=== PATIENT | female | born 1990 | race Caucasian/White ===

== ENCOUNTER 2025-04-16 08:29 | Outpatient (CLI) | payer BC, SELFPAY | END 2025-04-16 08:30 | disposition home or self-care (01) | LOC: NFLDREF 04-29 03:55 | PROVIDERS: Visit Provider Registered Nurse | DX: Z31.69 Encounter for other general counseling and advice on procreation (principal) | CPT/HCPCS: 84144 ==

== ENCOUNTER 2025-05-14 16:13 | Outpatient (CLI) | payer BC, SELFPAY | END 2025-05-14 16:14 | disposition home or self-care (01) | LOC: NFLDREF 05-24 01:48 | PROVIDERS: Visit Provider Registered Nurse | DX: Z31.69 Encounter for other general counseling and advice on procreation (principal) | CPT/HCPCS: 84144 ==

== ENCOUNTER 2025-06-26 15:54 | Outpatient (CLI) | payer BC, SELFPAY ==
--- NOTE | 2025-06-26 16:00 | CRLHL7_ITS ---
For Patients: As a result of the Cures Act, medical imaging exams and procedure reports are released immediately into your electronic medical record. You may view this report before your referring provider. If you have questions, please contact your health care provider. OB ULTRASOUND INDICATION: Dating and viability. TECHNIQUE: Real time grayscale imaging of the fetus was performed. Transvaginal. Transvaginal imaging performed to better demonstrate the endometrium and ovaries. LMP: 04/24/2025. JAMEL by LMP: 01/29/2026. GA: 9 w, 0 d. Previous US: No. CRL: 2.3 cm. 9 w 0 d. JAMEL: 01/29/2026. FHR: 181 BPM. Gestational sac: 4.1 cm. Appears within normal limits. Yolk sac: 2.7 mm. Appears within normal limits. Right ovary: 2.9 x 1.9 x 3.1 cm. CL. Left ovary: 2.3 x 1.2 x 1.9 cm. IMPRESSION: Single living intrauterine measures 9 weeks 0 days and sonographic due date 01/29/2026. Subchorionic hemorrhage measures 1.2 x 0.6 x 0.6 cm. Bakari Fuentes M.D. Diagnostic Radiologist [email or web address] rockwell/Dictated by: Bakari Fuentes MD @ 06/27/2025 7:43:00 AM (Electronically Signed)
== END 2025-06-26 15:55 | disposition home or self-care (01) ==
LOC: US 15:54
PROVIDERS: Visit Provider Registered Nurse
DX: O20.9 Hemorrhage in early pregnancy, unspecified (principal); Z3A.09 9 weeks gestation of pregnancy; Z82.79 Family history of other congenital malformations, deformations and chromosomal abnormalities
CPT/HCPCS: 76817; 83021; 86703; 86704; 86706; 86762; 86780; 86787; 86803; 86850; 86900; 86901; 87086; 87340; 87491; 87591

== ENCOUNTER 2025-06-26 17:07 | Outpatient (CLI) | payer BC, SELFPAY ==
[2025-06-26 20:37] LABS: Chlamydia DNA Amplified* NOT DETECTED (No Detected); GC DNA Amplified* NOT DETECTED (No Detected)
== END 2025-06-26 17:08 | disposition home or self-care (01) ==
PROVIDERS: Visit Provider Registered Nurse
DX: Z34.91 Encounter for supervision of normal pregnancy, unspecified, first trimester (principal); Z82.79 Family history of other congenital malformations, deformations and chromosomal abnormalities
CPT/HCPCS: 83020; 83021; 85660; 86703; 86704; 86706; 86762; 86780; 86787; 86803; 86850; 86900; 86901; 87086; 87340; 87491; 87591